=== PATIENT | female | born 2000 | race Caucasian/White ===

== ENCOUNTER 2023-12-21 15:08 | Emergency (ER) | payer MEDICAID ==
[~2023-12-21] VITALS: Ht 177.8 cm; Wt 79.4 kg
[2023-12-21] MEDS ORDERED: OMNICEF300 MG PO (15:56)
== END 2023-12-21 15:54 | disposition home or self-care (01) ==
LOC: ED 15:08
DX: H66.91 Otitis media, unspecified, right ear (principal); Z32.01 Encounter for pregnancy test, result positive; J32.9 Chronic sinusitis, unspecified

== ENCOUNTER 2024-06-19 03:21 | Emergency (ER) | payer MEDICAID ==
[~2024-06-19 03:21] MED LIST: OMNICEF300 MG PO
[2024-06-19 03:59] LABS: BASO % 0.4 % (0.0-1.0); EOS # 0.2 10*3/uL (0.0-0.4); EOS % 2.3 % (1.0-4.0); HEMATOCRIT 36.3 % (37.0-47.0); LYMPH # 2.2 10*3/uL (1.3-4.4); LYMPH % 28.3 % (27.0-41.0); MEAN CORPUSCULAR HGB 29.8 pg (27.0-31.0); MEAN CORPUSCULAR HGB CONC 32.8 g/dl (33.0-37.0); MONO # 0.7 10*3/uL (0.1-1.0); MONO % 9.5 % (3.0-9.0); NEUT # 4.6 10*3/uL (2.3-7.9); PLATELET COUNT AUTOMATED 182 10*3/uL (130-400); RED BLOOD COUNT 3.99 10*6/uL (4.10-5.10); RED CELL DISTRI WIDTH 13.1 % (0-14.5); WHITE BLOOD COUNT 7.8 10*3/uL (4.8-10.8)
[2024-06-19 04:18] LABS: BUN 9 mg/dl (9-23); CHLORIDE 104 mmol/L (98-107); POTASSIUM 4.1 mmol/L (3.4-5.1)
[2024-06-19] MEDS ORDERED: GLYCERIN 1 SUPP SUPP R ONE (04:20)
[2024-06-19] MEDS ORDERED: Na Phos, Dibasic/Na Phos, Mo 1 EA BOT R ONE ×2 (04:30→04:45)
[2024-06-19] MEDS ORDERED: BISACODYL 10 MG SUPP R ONE (04:35)
[2024-06-19] MEDS ORDERED: SENNA8.6 MG PO (05:26)
== END 2024-06-19 05:35 | disposition home or self-care (01) ==
LOC: ED 03:21
PROVIDERS: Internal Medicine
DX: K59.00 Constipation, unspecified (principal); R11.2 Nausea with vomiting, unspecified